=== PATIENT | female | born 1985 | race Caucasian/White ===

== ENCOUNTER 2016-10-21 08:28 | Inpatient (IN) | payer OTHER ==
[~2016-10-21] VITALS: Ht 167.6 cm; Wt 86.2 kg
[2016-10-21] VITALS (23 sets, daily range): BP systolic 109–138; BP diastolic 67–88
[~2016-10-21 08:28] MED LIST: ALBUTEROL SULF8.5 GM IH; BUSPAR5 MG PO; CELEXA20 MG PO; CHERATUSSIN AC473 ML PO; CYMBALTA60 MG PO; METHADONE; MOTRIN IB200 MG PO; Motrin PO; ORTHO CYCLEN1 TABLET PO; OXAYDO5 MG PO; PHENERGAN-CODE120 ML PO; PREDNISONE10 M1 PO; PRENATAL1 EACH PO; TESSALON PERLE100 MG PO; TORADOL10 MG PO; TYLENOL PM1 CAPLET PO; TYLENOL325 MG PR; VENTOLIN HFA18 GM IH; XANAX2 MG PO; ZITHROMAX Z-PA250 MG PO; ZITHROMAX250 MG PO
[2016-10-21] MEDS ORDERED: BUPRENORPHINE HC8 MG SL (09:10)
[2016-10-21 10:15] LABS: EOSINOPHIL (%) 1.6 % (0-5); EOSINOPHIL COUNT 0.2 K/uL (0-0.3); HEMATOCRIT 37.2 % (36.0-46.0); IMMATURE GRANULOCYTE (%) 0.8 % (0.0-0.7); IMMATURE GRANULOCYTE COUNT 0.1 K/uL; LYMPHOCYTE COUNT 3.8 K/uL (1.0-2.8); MCH 29.8 PG (29.0-34.0); MCHC 33.6 G/DL (30.0-36.0); MCV 88.6 FL (83-99); MEAN PLAT.VOLUME 10.7 uM^3 (9.5-12.4); MONOCYTE (%) 7.9 % (3-12); NEUTROPHIL (%) 59.5 % (45-76); NEUTROPHIL COUNT 7.4 K/uL (1.8-6.4); PLATELET COUNT 237 K/uL (156-360); RBC DIS.WIDTH-CV 13.5 % (11.8-14.6); RBC DIS.WIDTH-SD 43.6 % (39-53); WHITE BLOOD COUNT 12.5 K/uL (4.1-10.2)
[2016-10-21 10:31] LABS: ADD MIUA? YES; BILIRUBIN SMALL; BLOOD NEGATIVE; COLOR DK YELLOW ((YELLOW)); GLUCOSE (STRIP) NEGATIVE; KETONES NEGATIVE; LEUKOCYTES NEGATIVE; NITRITE NEGATIVE; PROTEIN (STRIP) NEGATIVE; SPECIFIC GRAVITY 1.022 (1.000-1.030)
[2016-10-21 11:12] LABS: BARBITUATES QUANT VALUE 0 NG/ML; BENZODIAZEPINES QUANT VALUE 0 NG/ML; BENZODIAZEPINES, URINE SCREEN Negative (200 ng/mL); MARIJUANA QUANT VALUE 0 NG/ML; OPIATES QUANTITATIVE VALUE 0 NG/ML; PHENCYCLIDINE QUANT VALUE 0 NG/ML
[2016-10-21 11:14] LABS: BACTERIA 1+; CALCIUM OXALATE CRYSTALS 1+; CASTS NONE SEEN /LPF; CRYSTALS PRESENT; EPITHELIAL CELLS 2+; MUCUS TRACE; RED BLOOD CELLS RARE /HPF (0-5); UCUL ADDED? NO; WHITE BLOOD CELLS 0-5 /HPF (0-5)
[2016-10-22 00:52] VITALS: BP 123/72
[2016-10-22 05:26] LABS: EOSINOPHIL COUNT 0.2 K/uL (0-0.3); HEMATOCRIT 35.4 % (36.0-46.0); IMMATURE GRANULOCYTE (%) 0.4 % (0.0-0.7); IMMATURE GRANULOCYTE COUNT 0.1 K/uL; LYMPHOCYTE COUNT 4.2 K/uL (1.0-2.8); MCH 30.7 PG (29.0-34.0); MCHC 34.7 G/DL (30.0-36.0); MCV 88.3 FL (83-99); MEAN PLAT.VOLUME 11.3 uM^3 (9.5-12.4); MONOCYTE (%) 7.1 % (3-12); MONOCYTE COUNT 1.2 K/uL (0-0.8); NEUTROPHIL (%) 66.4 % (45-76); NEUTROPHIL COUNT 11.2 K/uL (1.8-6.4); PLATELET COUNT 224 K/uL (156-360); RBC DIS.WIDTH-CV 13.3 % (11.8-14.6); RBC DIS.WIDTH-SD 42.6 % (39-53); RED BLOOD COUNT 4.01 M/uL (3.80-5.20); WHITE BLOOD COUNT 16.9 K/uL (4.1-10.2)
[2016-10-22 07:36] VITALS: BP 120/76
[2016-10-22 15:40] VITALS: BP 132/59
[2016-10-22 23:07] VITALS: BP 120/70
[2016-10-23 07:09] VITALS: BP 129/80
== END 2016-10-23 14:52 | disposition home or self-care (01) | DRG 775 ==
LOC: LDRP-OP → 2WEST 08:29 → LDRP-OP 11-21 12:42
PROVIDERS: Advanced Practice Midwife
PROC: 10E0XZZ Delivery of Products of Conception, External Approach (ICD-10-PCS; principal; 2016-10-21)
PROC: 10907ZC Drainage of Amniotic Fluid, Therapeutic from Products of Conception, Via Natural or Artificial Opening (ICD-10-PCS; principal; 2016-10-21)
PROC: 3E033VJ Introduction of Other Hormone into Peripheral Vein, Percutaneous Approach (ICD-10-PCS; principal; 2016-10-21)
PROC: 00HU33Z Insertion of Infusion Device into Spinal Canal, Percutaneous Approach (ICD-10-PCS; principal; 2016-10-21)
PROC: 3E0R3CZ (ICD-10-PCS; principal; 2016-10-21)
DX: O36.5930 Maternal care for other known or suspected poor fetal growth, third trimester, not applicable or unspecified (principal); O99.324 Drug use complicating childbirth; F11.20 Opioid dependence, uncomplicated; O99.334 Smoking (tobacco) complicating childbirth; F17.210 Nicotine dependence, cigarettes, uncomplicated; O62.3 Precipitate labor; Z37.0 Single live birth; Z3A.40 40 weeks gestation of pregnancy
CPT/HCPCS: 81003; 85025; C1755; J0571; J2795; J3010; J7120

== ENCOUNTER 2016-11-14 20:05 | Emergency (ER) | payer OTHER ==
[~2016-11-14] VITALS: Ht 167.6 cm; Wt 77.4 kg
[~2016-11-14 20:05] MED LIST changes: +BUPRENORPHINE HC8 MG SL
[2016-11-14 23:53] LABS: HEMATOCRIT 42.1 % (36.0-46.0); MCH 31.1 PG (29.0-34.0); MCHC 35.9 G/DL (30.0-36.0); MCV 86.6 FL (83-99); MEAN PLAT.VOLUME 10.6 uM^3 (9.5-12.4); RBC DIS.WIDTH-CV 12.6 % (11.8-14.6); WHITE BLOOD COUNT 21.9 K/uL (4.1-10.2)
[2016-11-14 23:54] LABS: PLATELET COUNT 305 K/uL (156-360); RED BLOOD COUNT 4.86 M/uL (3.80-5.20)
[2016-11-14 23:55] LABS: CHLORIDE 108 mEq/L (99-109); POTASSIUM 3.3 mEq/L (3.7-5.4); SODIUM 139 mEq/L (136-147)
[2016-11-14 23:56] LABS: INTER. NORMALIZED RATIO 1.1; PROTHROMBIN TIME 10.9 (9.2-11.2); PTT 31.6 (25-32)
[2016-11-14 23:57] LABS: GLUCOSE 105 mg/dL (70-99)
[2016-11-14 23:58] LABS: ANION GAP 14 MEQ/L (2-14)
[2016-11-15] LABS: GFR ESTIMATE (CALCULATED) > 59 mL/min/
[2016-11-15 00:01] LABS: UREA NITROGEN (BUN) 11 mg/dL (9-23)
[2016-11-15 00:10] LABS: QUANTITATIVE HCG < 4.0 MIU/ML
[2016-11-15 00:40] VITALS: BP 134/84
== END 2016-11-15 01:01 | disposition short-term general hospital (02) ==
LOC: EME 20:05
PROVIDERS: Emergency Medicine
DX: I60.9 Nontraumatic subarachnoid hemorrhage, unspecified (principal); F17.200 Nicotine dependence, unspecified, uncomplicated; Z88.0 Allergy status to penicillin
CPT/HCPCS: 70450; 80048; 84702; 85027; 85610; 85730; 99281; 99285; J1200; J1885; J2270; J2405; J2765; J7030; J7050